=== PATIENT | female | born 1930 | race Caucasian/White ===

== ENCOUNTER 2019-04-13 19:53 | Emergency (ER) | payer MEDICARE, BC ==
[~2019-04-13] VITALS: Ht 165.1 cm; Wt 69.9 kg
--- NOTE | 2019-04-13 19:55 | NUR ---
Dr. Soni at bedside for MSE.
[2019-04-13] MEDS ORDERED: IV NORMAL SALINE 1000 ML BAG IV ONE (20:00)
[2019-04-13] MEDS ORDERED: ONDANSETRON 4 MG/2 ML VIAL IV ONE (20:00)
[2019-04-13] MEDS ORDERED: ONDANSETRON 4 MG/2 ML VIAL ONE (20:02)
[2019-04-13 20:12] LABS: BASOPHILS % (AUTO) 0.3 % (0.0-2.0); EOSINOPHILS # (AUTO) 0.1 K/uL (0.0-0.7); EOSINOPHILS % (AUTO) 0.8 % (0.0-7.0); HEMATOCRIT 38.5 % (31.2-41.9); HEMOGLOBIN 12.7 g/dL (10.9-14.3); LYMPHOCYTES # (AUTO) 0.3 K/uL (20.0-40.0); LYMPHOCYTES % (AUTO) 3.8 % (20.5-51.5); MEAN CORPUSCULAR HEMOGLOBIN 31.2 uug (24.7-32.8); MEAN CORPUSCULAR HGB CONC 33 g/dL (32.3-35.6); MEAN CORPUSCULAR VOLUME 94.6 fL (75.5-95.3); MONOCYTES # (AUTO) 0.4 K/uL (2.0-10.0); MONOCYTES % (AUTO) 4.2 % (0.0-11.0); NEUTROPHILS # (AUTO) 7.7 K/uL (1.8-8.9); NEUTROPHILS % (AUTO) 90.9 % (38.5-71.5); PLATELET COUNT (AUTO) 201 K/uL (179-408); RED BLOOD CELL COUNT(AUTO) 4.07 MIL/uL (3.63-4.92); WHITE BLOOD COUNT (AUTO) 8.5 K/uL (3.8-11.8)
[2019-04-13 20:20] LABS: CREATININE 1.2 mg/dL (0.6-1.3); POTASSIUM 4.4 mmol/L (3.5-5.1)
[2019-04-13 20:25] LABS: BILIRUBIN,DIRECT 0.2 mg/dL (0.0-0.2); BILIRUBIN,TOTAL 0.7 mg/dL (0.2-1.0); TOTAL PROTEIN, SERUM 6.8 g/dL (6.4-8.2)
--- NOTE | 2019-04-13 21:40 | NUR ---
Patient discharged to home in stable conditon. Written and verbal after care instructions given. Patient verbalizes understanding of instructions. Pt out of ER via wheelchair, assisted transfer to car, no falls noted, VSS, all belongings taken, to be driven home via private vehicle by .
[2019-04-13 21:41] VITALS: BP 130/63
== END 2019-04-13 21:41 | disposition home or self-care (01) ==
LOC: ER 19:59
DX: K52.9 Noninfective gastroenteritis and colitis, unspecified (principal); I10 Essential (primary) hypertension; J45.909 Unspecified asthma, uncomplicated; Z88.0 Allergy status to penicillin
CPT/HCPCS: 36415; 80048; 80076; 83690; 84484; 85025; 85730; 96361; 96374; 99283; J2405; 70030-TC; A4663; J7030

== ENCOUNTER 2020-07-19 18:19 | Emergency (ER) | payer MEDICARE, BC ==
[~2020-07-19] VITALS: Ht 157.5 cm; Wt 63.5 kg
--- NOTE | 2020-07-19 18:20 | NUR ---
Patient brought in by 99 for s/p fall due to generalized weakness
[2020-07-19] MEDS ORDERED: METO25TA6 PO (18:37)
[2020-07-19 19:02] LABS: BASOPHILS # (AUTO) 0.1 K/uL (0.0-8.0); BASOPHILS % (AUTO) 0.5 % (0.0-2.0); EOSINOPHILS % (AUTO) 0.3 % (0.0-7.0); HEMATOCRIT 39.8 % (31.2-41.9); LYMPHOCYTES # (AUTO) 1.2 K/uL (20.0-40.0); LYMPHOCYTES % (AUTO) 7.6 % (20.5-51.5); MEAN CORPUSCULAR HEMOGLOBIN 30.1 uug (24.7-32.8); MEAN CORPUSCULAR HGB CONC 33 g/dL (32.3-35.6); MEAN CORPUSCULAR VOLUME 92.1 fL (75.5-95.3); MONOCYTES # (AUTO) 1.2 K/uL (2.0-10.0); MONOCYTES % (AUTO) 7.6 % (0.0-11.0); NEUTROPHILS # (AUTO) 13.5 K/uL (1.8-8.9); PLATELET COUNT (AUTO) 219 K/uL (179-408); RED BLOOD CELL COUNT(AUTO) 4.32 MIL/uL (3.63-4.92); WHITE BLOOD COUNT (AUTO) 16.1 K/uL (3.8-11.8)
[2020-07-19 19:09] LABS: CREATININE 1.2 mg/dL (0.6-1.3); POTASSIUM 4.2 mmol/L (3.5-5.1)
[2020-07-19 19:26] LABS: BILIRUBIN,DIRECT 0.2 mg/dL (0.0-0.2); BILIRUBIN,TOTAL 0.8 mg/dL (0.2-1.0); TOTAL PROTEIN, SERUM 7.7 g/dL (6.4-8.2)
[2020-07-19 19:52] LABS: *BILIRUBIN,URIN NEGATIVE (NEGATIVE); *CLARITY,URINE CLEAR (CLEAR); *COLOR,URINE YELLOW (YELLOW); *KETONES,URINE NEGATIVE (NEGATIVE); *UROBILINOGEN,URINE 0.2 E.U./dl (NORMAL); LEUKOCYTE ESTERASE ,URINE 2+ (NEGATIVE); NITRITE, URINE NEGATIVE (NEGATIVE); UGLUCOSE NEGATIVE (NEGATIVE)
[2020-07-19 19:53] LABS: *BLOOD, URINE TRACE INTACT (NEGATIVE)
--- NOTE | 2020-07-19 20:00 | NUR ---
Patient being uncooperative, pulled out her IV. states she wants to go home at this time. Redirected patient to bed & informed her still pending results.
[2020-07-19 20:02] LABS: SQUAMOUS EPITHELIAL CELL,UR FEW /HPF (NONE SEEN)
[2020-07-19] MEDS ORDERED: NITROFURANTOIN/NITROFURAN MAC 100 MG CAPSULE PO ONE (20:15)
[2020-07-19] MEDS ORDERED: NITR100C6 PO (20:30)
--- NOTE | 2020-07-19 20:37 | NUR ---
Patient discharged to home in stable condition. Written and verbal after care instructions given. Patient verbalizes understanding of instructions. Stressed follow up or return to ER for worsening s/s. Patient walked out of ER. Her is driving her home.
[2020-07-19 20:38] VITALS: BP 166/99
== END 2020-07-19 20:39 | disposition home or self-care (01) ==
LOC: ER 18:20
DX: N39.0 Urinary tract infection, site not specified (principal); R31.29 Other microscopic hematuria; I10 Essential (primary) hypertension; R53.1 Weakness; J45.909 Unspecified asthma, uncomplicated; M19.90 Unspecified osteoarthritis, unspecified site; Z88.0 Allergy status to penicillin; Z79.899 Other long term (current) drug therapy; R94.31 Abnormal electrocardiogram [ECG] [EKG]; I67.2 Cerebral atherosclerosis
CPT/HCPCS: 36415; 70030-TC; 70450; 71045; 85025; 87040; 87086; 93005; A4663; J7030

== ENCOUNTER 2021-07-07 21:20 | Inpatient (IN) | payer MEDICARE, BC ==
[~2021-07-07] VITALS: Ht 157.5 cm; Wt 63.5 kg
[~2021-07-07 21:20] MED LIST: METO25TA6 PO; NITR100C6 PO
--- NOTE | 2021-07-07 21:25 | NUR ---
Dr. Negro at bedside for MSE.
[2021-07-07] MEDS ORDERED: ONDANSETRON 4 MG/2 ML VIAL IV ONE (21:30)
[2021-07-07] MEDS ORDERED: ASPIRIN 81 MG TAB.CHEW PO ONE (21:30)
[2021-07-07] MEDS ORDERED: CLONIDINE HCL 0.1 MG TABLET PO ONE (21:30)
--- NOTE | 2021-07-07 21:30 | NUR ---
No information available about current home medications.
[2021-07-07] MEDS ORDERED: ASPIRIN 81 MG TAB.CHEW ONE (21:55)
[2021-07-07] MEDS ORDERED: ONDANSETRON 4 MG/2 ML VIAL ONE (21:55)
[2021-07-07] MEDS ORDERED: HYDROMORPHONE 1 MG/1 ML DISP.SYRIN IV ONE (22:00)
--- NOTE | 2021-07-07 22:00 | NUR ---
Xray at bedside
[2021-07-07] MEDS ORDERED: HYDROMORPHONE 1 MG/1 ML DISP.SYRIN ONE (22:07)
--- NOTE | 2021-07-07 22:08 | NUR ---
pt out of ER for CT.
--- NOTE | 2021-07-07 22:18 | NUR ---
Pt back to ER from CT.
--- NOTE | 2021-07-07 22:22 | NUR ---
Dr. Negro speaking with patient's [place]
[2021-07-07 22:31] LABS: HEMATOCRIT 42.2 % (31.2-41.9); MEAN CORPUSCULAR HEMOGLOBIN 30.8 uug (24.7-32.8); MEAN CORPUSCULAR VOLUME 93.5 fL (75.5-95.3); PLATELET COUNT (AUTO) 265 K/uL (179-408)
[2021-07-07 22:34] LABS: CREATININE 1.2 mg/dL (0.6-1.3); POTASSIUM 4.7 mmol/L (3.5-5.1)
[2021-07-07] MEDS ORDERED: IPRATROPIUM BROMIDE 0.5 MG/2.5 ML NEBU NEB ONE (22:45)
[2021-07-07] MEDS ORDERED: IV NS 1000 ML 1,000 ML IV ONE (22:45)
[2021-07-07] MEDS ORDERED: CEFTRIAXONE 1 G in IV DEXTROSE 5% 50 ML IV ONE (22:45)
[2021-07-07] MEDS ORDERED: ALBUTEROL SULFATE 2.5 MG/ 0.5 ML NEBU NEB ONE (22:45)
[2021-07-07 22:46] LABS: BILIRUBIN,DIRECT 0.1 mg/dL (0.0-0.2); BILIRUBIN,TOTAL 0.4 mg/dL (0.2-1.0); TOTAL PROTEIN, SERUM 7.6 g/dL (6.4-8.2)
[2021-07-07 22:53] LABS: MAGNESIUM 2.7 mg/dL (1.8-2.4)
--- NOTE | 2021-07-07 22:54 | NUR ---
inserted in and out catheter. pt tolerated well. urine sent to the lab.
[2021-07-07] MEDS ORDERED: ALBUTEROL SULFATE 2.5 MG/ 0.5 ML NEBU ONE (23:03)
[2021-07-07] MEDS ORDERED: IPRATROPIUM BROMIDE 0.5 MG/2.5 ML NEBU ONE (23:04)
[2021-07-07] MEDS ORDERED: CEFTRIAXONE /D5W 50ML IVPB **ER PYXIS IV ONE (23:07)
[2021-07-07] MEDS ORDERED: AZITHROMYCIN IV 500 MG in IV DEXTROSE 5% 250 ML IV ONE (23:15)
[2021-07-07] MEDS ORDERED: AZITHROMYCIN 500MG/ D5W 250ML IVPB **ER PYXIS ONLY IV ONE (23:32)
[2021-07-08 00:26] LABS: *BILIRUBIN,URIN NEGATIVE (NEGATIVE); *CLARITY,URINE CLEAR (CLEAR); *COLOR,URINE YELLOW (YELLOW); *KETONES,URINE NEGATIVE (NEGATIVE); *UROBILINOGEN,URINE 0.2 E.U./dl (NORMAL); LEUKOCYTE ESTERASE ,URINE NEGATIVE (NEGATIVE); NITRITE, URINE NEGATIVE (NEGATIVE); PH,URINE 5.5 (5.0-8.0); UGLUCOSE NEGATIVE (NEGATIVE)
[2021-07-08 00:27] LABS: *BLOOD, URINE TRACE (NEGATIVE)
[2021-07-08 00:28] LABS: BACTERIA,URINE NONE SEEN /HPF (NONE SEEN); SQUAMOUS EPITHELIAL CELL,UR FEW /HPF (NONE SEEN); WBC,URINE 0-3 /HPF (0-3)
--- NOTE | 2021-07-08 00:38 | NUR ---
Dr. Negro speaking with Dr. Lee for tele bed.
[2021-07-08] MEDS ORDERED: ACETAMINOPHEN 325 MG TABLET PO PRN (00:45)
[2021-07-08] MEDS ORDERED: ONDANSETRON 4 MG/2 ML VIAL IV PRN (00:45)
[2021-07-08] MEDS ORDERED: MAGNESIUM HYDROXIDE 30 ML LIQUID UDC PO PRN (00:45)
[2021-07-08] MEDS ORDERED: REMEDY ESSENTIAL ZINC PASTE 113 GM TP PRN (00:45)
[2021-07-08] MEDS ORDERED: HYDROCODONE/APAP 5-325MG TABLET PO PRN (00:45)
--- NOTE | 2021-07-08 01:56 | NUR ---
report given to Dee ROGERS tele.
[2021-07-08] MEDS ORDERED: ENOXAPARIN SODIUM 30 MG/0.3 ML DISP.SYRIN SQ SCH (02:45)
[2021-07-08] MEDS ORDERED: IPRATROPIUM BROMIDE 0.5 MG/2.5 ML NEBU NEB SCH (04:00)
[2021-07-08] MEDS ORDERED: ALBUTEROL SULFATE 2.5 MG/3 ML NEBU NEB SCH (04:00)
[2021-07-08 04:16] VITALS: BP 160/76
--- NOTE | 2021-07-08 04:25 | NUR ---
Received an 89 yr old female from ER with admitting diagnosis of respiratory failure. AAOx3-4 with some periods of confusion. Patient sinus rhythm on the monitor HR 84. Patient live with was brought in for increased shortness of breath. Was placed on face mask in ER @ 6L Oxygen. On arrival patient desats to 90% on 2L increase to 5L pulse ox95%. Hx of HTN, Asthma, Arthritis, Lumbar fracture, colitis. Denies any pain at this time. Skin intact. Patient incontinent of bowel and bladder. No BM noted. Kept clean and dry. NPO maintained as per MD's order. Will monitor patient. Fall precautions maintained. Siderails up for safety.
[2021-07-08] MEDS: methylPREDNISolone SOD SUCC 125 MG/2 ML VIAL IV SCH ×2 (05:34→13:56)
[2021-07-08 05:37] VITALS: BP 160/76
[2021-07-08] MEDS ORDERED: methylPREDNISolone SOD SUCC 40 MG/ML VIAL IV SCH (06:00)
[2021-07-08 06:22] LABS: HEMATOCRIT 41.9 % (31.2-41.9); MEAN CORPUSCULAR HEMOGLOBIN 30.2 uug (24.7-32.8); MEAN CORPUSCULAR VOLUME 93.3 fL (75.5-95.3); PLATELET COUNT (AUTO) 239 K/uL (179-408)
--- NOTE | 2021-07-08 06:49 | NUR ---
Critical lab called WBC 30.7 Dr Lee texted , awaiting for response. Will endorse to incoming nurse.
[2021-07-08] MEDS ORDERED: PANTOPRAZOLE SODIUM 40 MG TABLET.DR PO SCH (07:00)
[2021-07-08 07:27] LABS: BAND % (MANUAL) 9 % (0-10); LYMPHOCYTES % (MANUAL) 1 % (20-40); MONOCYTES % (MANUAL) 2 % (2-10); NEUTROPHILS % (MANUAL) 88 % (42-75)
--- NOTE | 2021-07-08 07:50 | NUR ---
Received patient using call light to bang on the side rails and screaming, at this time patient had removed n/c, explained to patient the importance of leaving it on, patient states go away and give me some water, explained to patient she is NPO patient insulted staff. Assisted patient to place n/c back in place. followed up with Dr. Noble with ok to start patient on cardiac soft diet, order noted and carried out. Water was given to patient, patient states give me the phone im going to call my to leave this is a horrible hospital, attempted to redirect patient with no positive effect. phone was given to patient. side rail upx2, call light within reach.
[2021-07-08] MEDS ORDERED: CEFTRIAXONE 1 G in IV DEXTROSE 5% 50 ML IV SCH ×2 (09:00→23:00)
[2021-07-08] MEDS ORDERED: ASPIRIN EC 81 MG TABLET.DR PO SCH (09:00)
[2021-07-08] MEDS: IPRATROPIUM BROMIDE 0.5 MG/2.5 ML NEBU NEB SCH ×2 (09:12→11:42)
[2021-07-08] MEDS: ALBUTEROL SULFATE 2.5 MG/3 ML NEBU NEB SCH ×2 (09:12→11:42)
--- NOTE | 2021-07-08 09:19 | NUR ---
patient continues to remove oxygen, removed iv line, refuses new iv site. Spoke to navneet asked if he could speak to , per Navneet " no i would rather speak to the doctor first." will attempt to restart IV
--- NOTE | 2021-07-08 10:54 | NUR ---
Called Radiologist to confirm if CTA Chest Angio with lab values: GFR 44 BUN 28 Cre 1.2 Radiologist reluctant to give a confirmation. called Kathie Rajput, Specimen Transporter about the situation. Was told to talk to attending provider: Dr. Noble. Spoke with Dr. Nobel. Was told to wait for Prince Loza CROWN POUNCER, due to shift change, to confirm to move forward with exam.
[2021-07-08 11:05] LABS: CREATININE 1.1 mg/dL (0.6-1.3); POTASSIUM 4.7 mmol/L (3.5-5.1)
--- NOTE | 2021-07-08 11:09 | NUR ---
Spoke with Prince Loza NP about labs for patient. To call Radiology when ready.
--- NOTE | 2021-07-08 11:41 | NUR ---
Prince Loza LEAD WELDER called and understands the risks. Confirmed labs
--- NOTE | 2021-07-08 11:48 | NUR ---
Contrast Consent form to be filled out by RN. RN to call when ready.
[2021-07-08] MEDS ORDERED: IOHEXOL 350 100 ML INFUS..BTL ONE (11:52)
--- NOTE | 2021-07-08 11:55 | NUR ---
RN Call Consent form signed
[2021-07-08 12:00] VITALS: BP 126/57
--- NOTE | 2021-07-08 12:08 | NUR ---
patient agreed to new iv site, 20g started to right f/a in place and patent. Patient given information regarding a CTA patient states understanding of procedure, all paperwork complete.
--- NOTE | 2021-07-08 12:09 | NUR ---
informed Nacho at radiology that patient consented to CTA, per Nacho i will pick her up in a couple minutes.
[2021-07-08] MEDS ORDERED: LEVO750T46 PO (13:50)
--- NOTE | 2021-07-08 13:51 | NUR ---
patient continues to remove oxygen tubing, teletypesetter monitor leads, refuses care, attempted to redirect with no positive effect.
[2021-07-08] MEDS ORDERED: METH4TAB3 PO (13:55)
[2021-07-08] MEDS ORDERED: DOXY100C5 PO (13:55)
[2021-07-08] MEDS ORDERED: ALBU8.5H8 INH (13:55)
--- NOTE | 2021-07-08 15:00 | NUR ---
patient wanting to leave against medical advise risks informed to patient by Prince Burgos and other members of the medical staff. and continue requesting to leave. AMA form signed by both [facility] and patient Bernie. Upon discharge v/s wnl, afebrile, iv site removed dressing applied.
[2021-07-08] MEDS ORDERED: AZITHROMYCIN IV 500 MG in IV DEXTROSE 5% 250 ML IV SCH (21:00)
[2021-07-09] MEDS ORDERED: ENOXAPARIN SODIUM 30 MG/0.3 ML DISP.SYRIN SQ SCH (09:00)
== END 2021-07-08 15:03 | disposition left against medical advice (07) | DRG 177 ==
LOC: ER 21:20 → TELE3 07-08 00:46 → UNDOADMIN 07-08 02:20 → MEDSURG3 07-08 13:47
PROVIDERS: ADMIT Nurse Practitioner Family; ATTEND Nurse Practitioner Family
DX: J15.6 Pneumonia due to other Gram-negative bacteria (principal); J96.01 Acute respiratory failure with hypoxia; J45.901 Unspecified asthma with (acute) exacerbation; M48.56XA Collapsed vertebra, not elsewhere classified, lumbar region, initial encounter for fracture; E11.65 Type 2 diabetes mellitus with hyperglycemia; E83.52 Hypercalcemia; I10 Essential (primary) hypertension; Z87.891 Personal history of nicotine dependence; Z88.0 Allergy status to penicillin; M19.90 Unspecified osteoarthritis, unspecified site; D72.829 Elevated white blood cell count, unspecified; Z20.822 Contact with and (suspected) exposure to COVID-19; T38.0X5A Adverse effect of glucocorticoids and synthetic analogues, initial encounter; Y92.89 Other specified places as the place of occurrence of the external cause; K44.9 Diaphragmatic hernia without obstruction or gangrene; K52.9 Noninfective gastroenteritis and colitis, unspecified
CPT/HCPCS: 36415; 70030-TC; 71045; 71275; 83605; 83690; 83735; 85025; 87040; 87077; 87086; 93005; 93307; 94640; 94664; A4663; C1758; G0378; J0456; J0696; J1170; J2405; J2920; J2930; J3590; J7030; J7060; Q9967